=== PATIENT | female | born 1995 | race Caucasian/White ===

== ENCOUNTER → 2017-02-22 | Outpatient (REF) | payer OTHER ==
[~2017-02-22] MED LIST: AUGM500T34 PO; ORTHTAB5 PO; VICO5TAB PO
== END ==
LOC: M LAB REF 14:51
PROVIDERS: ATTEND Surgery
DX: D17.1 Benign lipomatous neoplasm of skin and subcutaneous tissue of trunk (principal)

== ENCOUNTER → 2018-06-06 | Outpatient (REF) | payer OTHER | LOC: M LAB REF 11:51 | PROVIDERS: ATTEND Surgery | DX: D17.1 Benign lipomatous neoplasm of skin and subcutaneous tissue of trunk (principal) ==

== ENCOUNTER → 2018-09-27 | Outpatient (REF) | payer OTHER ==
[2018-10-03 14:07] LABS: HPV HYBRID CAPTURE II Negative (Negative)
== END ==
LOC: M LAB REF 13:30
PROVIDERS: ATTEND Physician Assistant Medical
DX: B37.3 Candidiasis of vulva and vagina (principal); Z12.4 Encounter for screening for malignant neoplasm of cervix
CPT/HCPCS: 87624; G0123

== ENCOUNTER → 2018-12-13 | Outpatient (REF) | payer OTHER ==
[2018-12-13 17:50] LABS: HEMATOCRIT 38.2 % (36.0-47.0); HEMOGLOBIN 12.7 g/dl (12.0-15.5); MEAN CORPUSCULAR HEMOGLOBIN 31.8 pg (27.0-33.0); MEAN CORPUSCULAR HGB CONC 33.2 g/dl (32.0-36.5); MEAN CORPUSCULAR VOLUME 95.7 fl (80.0-96.0); PLATELET COUNT, AUTOMATED 332 10^3/uL (150-450); RED BLOOD COUNT 3.99 10^6/uL (4.00-5.40); WHITE BLOOD COUNT 10.1 10^3/uL (4.0-10.0)
[2018-12-13 18:44] LABS: HCG, SERUM QUANTITATIVE 64263 MIU/ML; HIV 1&2 SCREEN CENTAUR NEGATIVE (NEGATIVE); RUBELLA IgG QUALITATIVE IMMUNE (IMMUNE)
[2018-12-15 11:40] LABS: HEPATITIS C VIRUS ABY INDEX 0.1 INDEX (<0.8)
== END ==
LOC: M LAB REF 17:12
PROVIDERS: ATTEND Obstetrics & Gynecology
DX: O36.80X0 Pregnancy with inconclusive fetal viability, not applicable or unspecified (principal); Z3A.00 Weeks of gestation of pregnancy not specified

== ENCOUNTER → 2019-03-15 | Outpatient (REF) | payer OTHER | LOC: M LAB REF 16:58 | PROVIDERS: ATTEND Obstetrics & Gynecology | DX: Z36.89 Encounter for other specified antenatal screening (principal) ==

== ENCOUNTER → 2019-05-03 | Outpatient (CLI) | payer OTHER, SELFPAY ==
[2019-05-03 14:55] LABS: HEMATOCRIT 32.8 % (36.0-47.0); HEMOGLOBIN 10.5 g/dl (12.0-15.5); MEAN CORPUSCULAR HEMOGLOBIN 31.9 pg (27.0-33.0); MEAN CORPUSCULAR VOLUME 99.7 fl (80.0-96.0); PLATELET COUNT, AUTOMATED 281 10^3/uL (150-450); RED BLOOD COUNT 3.29 10^6/uL (4.00-5.40); WHITE BLOOD COUNT 13.1 10^3/uL (4.0-10.0)
== END ==
LOC: M LAB 12:34
PROVIDERS: ATTEND Obstetrics & Gynecology
DX: Z34.02 Encounter for supervision of normal first pregnancy, second trimester (principal); Z3A.00 Weeks of gestation of pregnancy not specified

== ENCOUNTER → 2019-06-28 | Outpatient (REF) | payer OTHER | LOC: M LAB REF 16:29 | PROVIDERS: ATTEND Obstetrics & Gynecology | DX: Z34.03 Encounter for supervision of normal first pregnancy, third trimester (principal) ==

== ENCOUNTER 2019-08-01 01:37 | Inpatient (IN) | payer OTHER ==
[2019-08-01] VITALS (49 sets, daily range): BP systolic 99–149; BP diastolic 47–96
[~2019-08-01] VITALS: Ht 154.9 cm; Wt 73.8 kg
[2019-08-01] MEDS ORDERED: LACTATED RINGER'S 1000 ML IV STA (03:05)
[2019-08-01] MEDS ORDERED: OXYTOCIN DRIP 30 UNITS in IV 1 EA IV SCH ×2 (03:15→12:25)
[2019-08-01 03:42] LABS: HEMATOCRIT 37.9 % (36.0-47.0); HEMOGLOBIN 12.5 g/dl (12.0-15.5); MEAN CORPUSCULAR HEMOGLOBIN 31.2 pg (27.0-33.0); MEAN CORPUSCULAR VOLUME 94.5 fl (80.0-96.0); PLATELET COUNT, AUTOMATED 314 10^3/uL (150-450); RED BLOOD COUNT 4.01 10^6/uL (4.00-5.40); WHITE BLOOD COUNT 13.5 10^3/uL (4.0-10.0)
[2019-08-01] MEDS ORDERED: FENTANYL 2MCG/ML ROPIVACAINE 0.2% IN 0.9% NACL 100ML IVBAG As Ordered ONE (04:42)
[2019-08-01] MEDS ORDERED: LACTATED RINGER'S 1000 ML IV PRN (05:15)
[2019-08-01] MEDS ORDERED: EPIDURAL COMMENT XX SCH (05:15)
[2019-08-01] MEDS ORDERED: EPIDURAL/PCA KEYS XX PRN (05:15)
[2019-08-01] MEDS ORDERED: REFRIGERATOR IV KEYS XX PRN (05:15)
[2019-08-01] MEDS ORDERED: diphenhydrAMINE 50MG/ML VIAL (J1200) IV PRN (05:15)
[2019-08-01] MEDS ORDERED: FENTANYL/ROPIVACAINE/NACL BAG 100 ML EPIDURAL SCH (05:15)
[2019-08-01] MEDS ORDERED: ONDANSETRON 4MG/2ML VIAL IV PRN (05:15)
[2019-08-01] MEDS ORDERED: NALOXONE INJ 0.4MG/1ML VIAL (J2310 PER 1MG) IV PRN (05:15)
[2019-08-01] MEDS: ePHEDrine SULFATE 25 MG/5 ML(5MG/ML) SYRINGE IV PRN ×3 (07:37→08:17)
[2019-08-01] MEDS: LR 1,000 ML IV SCH ×2 (07:46→08:46)
[2019-08-01 12:21] LABS: CORD GAS ABE A -10.6; CORD GAS HCO3 A 18.2 MEQ/L; CORD GAS O2 SAT A 72.1 %; CORD GAS PCO2 A 51.2 mmHg; CORD GAS PH A 7.168 UNITS; CORD GAS PO2 A 37.6 mmHg; CORD GAS SBC A 15.7 MEQ/L; CORD GAS TCO2 A 19.7 MEQ/L
[2019-08-01 12:22] LABS: CORD GAS ABE V -9.3; CORD GAS HCO3 V 17.7 MEQ/L; CORD GAS O2 SAT V 78.8 %; CORD GAS PCO2 V 42.2 mmHg; CORD GAS PH V 7.24 UNITS; CORD GAS PO2 V 39.4 mmHg; CORD GAS SBC V 16.8 MEQ/L
[2019-08-01] MEDS ORDERED: RHOGAM 300 MCG (1500 IU) INJ (J2790) IM SCH (12:30)
[2019-08-01] MEDS ORDERED: MEASLES,MUMPS,RUBELLA VACCINE INJ (MMR-II) (90707) SC SCH (12:30)
[2019-08-01] MEDS ORDERED: ACETAMINOPHEN 500 MG TAB PO PRN (12:30)
[2019-08-01] MEDS ORDERED: DOCUSATE SODIUM 100 MG CAP PO PRN (12:30)
[2019-08-01] MEDS ORDERED: DIBUCAINE 1% OINTMENT 30GM TOP PRN (12:30)
[2019-08-01] MEDS ORDERED: ANUSOL HC CREAM 30GM TOP PRN (12:30)
[2019-08-01] MEDS ORDERED: IBUPROFEN 800 MG TAB PO PRN (12:30)
[2019-08-01] MEDS ORDERED: METHYLERGONOVINE MALEATE 0.2 MG TAB PO PRN (12:30)
[2019-08-01] MEDS ORDERED: ACETAMINOPHEN TAB 650MG DOSE (2X325MG) PO PRN (12:30)
--- NOTE | 2019-08-02 04:26 | HPE ---
DATE OF ADMISSION: 08/01/2019 Yarelis is a 24-year-old female, 1, para 0, with an estimated date of confinement (EDC) of 07/31/2019, estimated gestational age (EGA) 40-1/7 weeks gestation, who presented to labor and delivery with complaints of contractions every 4-5 minutes. Upon evaluation in labor and delivery, she was found to be in labor. At this point, a decision was made for admission. Her record reviewed, which was essentially unremarkable. She initiated care in her first trimester. LAB: Blood type is A positive, rubella immune, hepatitis negative, HIV negative, GC/chlamydia negative. 1-hour sugar testing was within normal limits. Her group B streptococcus (GBS) is negative. PAST MEDICAL HISTORY: Significant for gastroesophageal reflux. PAST SURGICAL HISTORY: Appendecotmy, wisdom tooth extraction, lipoma removal. SOCIAL HISTORY: Patient denies any alcohol, drug, or cigarette smoking. FAMILY HISTORY: Unremarkable. REVIEW OF SYSTEMS: Unremarkable. MEDICATION: - vitamin - pantoprazole ALLERGIES: No known drug allergies. PHYSICAL EXAMINATION: Normal appearing female in no acute distress. Abdomen: Soft, nontender, nondistended. Extremities: No clubbing, cyanosis, or edema. Vaginal exam: Is 4 cm, 80% effaced. Fetus at -2 station in the vertex position. Tracing reviewed. Category 1 tracing with contractions every 3-4 minutes. ASSESSMENT: Intrauterine at 40-1/7 weeks gestation, in active labor. PLAN: Admit to labor and delivery. Routine labs sent. Pain management discussed. Patient opts for an epidural. We will continue to monitor. Anticipate delivery.
[2019-08-02] MEDS: IBUPROFEN 600 MG TAB PO PRN (05:22)
[2019-08-02 06:00] VITALS: BP 110/56
[2019-08-02] MEDS: PRENATAL VITAMINS CHEWABLE TABLET PO SCH (08:12)
[2019-08-02] MEDS ORDERED: INFLUENZA QUADRIVALENT PF VACCINE 0.5ML SYRINGE (90686) IM ONE (09:00)
[2019-08-02] MEDS ORDERED: BOOSTRIX/ADACEL VACCINE (DIPHTH/PERTUSS/ACELL/TETANUS) 0.5ML SYR IM ONE (09:00)
[2019-08-02 18:00] VITALS: BP 139/81
[2019-08-03 05:59] VITALS: BP 130/62
[2019-08-03] MEDS: PRENATAL VITAMINS CHEWABLE TABLET PO SCH (09:33)
[2019-08-03] MEDS ORDERED: INFLUENZA QUADRIVALENT PF VACCINE 0.5ML SYRINGE (90686) IM ONE (09:45)
[2019-08-03] MEDS: IBUPROFEN 600 MG TAB PO PRN (12:58)
--- NOTE | 2019-08-04 17:41 | DN ---
DATE: 08/01/2019 Yarelis is a 24-year-old female, 1, para 0 who was admitted at 40-1/7 weeks gestation in active labor. She underwent artificial rupture of membranes, clear fluid. She became fully dilated after Pitocin augmentation, delivered a live male infant in occiput posterior position with terminal meconium over an intact perineum. scores 8 and 9, weight 8 pounds, 5 ounces. Placenta delivered spontaneously intact. Three-vessel cord. Small periurethral abrasion noted. No active bleeding. No suture was needed. Estimated blood loss 300 mL. Both mother and baby in stable condition.
== END 2019-08-03 13:00 | disposition home or self-care (01) | DRG 560 ==
LOC: M LDO 01:37 → M LDI 02:38 → M OBS 17:07
PROVIDERS: ADMIT Obstetrics & Gynecology; ATTEND Obstetrics & Gynecology
PROC: 10E0XZZ Delivery of Products of Conception, External Approach (ICD-10-PCS; principal; 2019-08-01)
PROC: 10907ZC Drainage of Amniotic Fluid, Therapeutic from Products of Conception, Via Natural or Artificial Opening (ICD-10-PCS; 2019-08-01)
DX: O48.0 Post-term pregnancy (principal); O77.0 Labor and delivery complicated by meconium in amniotic fluid; Z3A.40 40 weeks gestation of pregnancy; Z37.0 Single live birth

== ENCOUNTER → 2021-09-15 | Outpatient (REF) | payer OTHER, MEDICAID ==
[2021-09-15 17:23] LABS: HEMOGLOBIN 13.5 g/dl (12.0-15.5); MEAN CORPUSCULAR HEMOGLOBIN 30.8 pg (27.0-33.0); MEAN CORPUSCULAR HGB CONC 32.9 g/dl (32.0-36.5); MEAN CORPUSCULAR VOLUME 93.4 fl (80.0-96.0); PLATELET COUNT, AUTOMATED 335 10^3/uL (150-450); RED BLOOD COUNT 4.39 10^6/uL (4.00-5.40); WHITE BLOOD COUNT 9.6 10^3/uL (4.0-10.0)
[2021-09-15 17:55] LABS: HCG, SERUM QUANTITATIVE 17162 MIU/ML
[2021-09-15 18:10] LABS: HEPATITIS B SURFACE ANTIGEN NEGATIVE (NEGATIVE)
[2021-09-15 18:37] LABS: HEPATITIS C VIRUS ABY INDEX 0.1 INDEX (<0.8)
[2021-09-15 18:38] LABS: HIV 1&2 SCREEN CENTAUR NEGATIVE (NEGATIVE)
== END ==
LOC: M LAB REF 16:50
PROVIDERS: ATTEND Obstetrics & Gynecology
DX: Z32.01 Encounter for pregnancy test, result positive (principal); O36.80X0 Pregnancy with inconclusive fetal viability, not applicable or unspecified

== ENCOUNTER → 2021-11-04 | Outpatient (REF) | payer OTHER, MEDICAID | LOC: M LAB REF 16:06 | PROVIDERS: ATTEND Obstetrics & Gynecology | DX: O02.1 Missed abortion (principal) ==

== ENCOUNTER → 2021-11-13 | Outpatient (REF) | payer OTHER, MEDICAID | LOC: M LAB REF 15:00 | PROVIDERS: ATTEND Obstetrics & Gynecology | DX: O02.1 Missed abortion (principal) ==

== ENCOUNTER → 2021-11-20 | Outpatient (REF) | payer OTHER, MEDICAID | LOC: M LAB REF 15:22 | PROVIDERS: ATTEND Obstetrics & Gynecology | DX: O02.1 Missed abortion (principal) ==

== ENCOUNTER → 2021-11-26 | Outpatient (REF) | payer OTHER, MEDICAID | LOC: M LAB REF 12:22 | PROVIDERS: ATTEND Obstetrics & Gynecology | DX: O02.1 Missed abortion (principal) ==

== ENCOUNTER → 2021-12-05 | Outpatient (CLI) | payer OTHER, MEDICAID | LOC: M LAB 11:36 | PROVIDERS: ATTEND Obstetrics & Gynecology | DX: O02.1 Missed abortion (principal); Z3A.00 Weeks of gestation of pregnancy not specified ==

== ENCOUNTER → 2021-12-11 | Outpatient (REF) | payer OTHER, MEDICAID | LOC: M LAB REF 16:22 | PROVIDERS: ATTEND Obstetrics & Gynecology | DX: Z32.02 Encounter for pregnancy test, result negative (principal); O02.1 Missed abortion ==

== ENCOUNTER → 2021-12-15 | Outpatient (REF) | payer OTHER, MEDICAID ==
[2021-12-15 13:29] LABS: BASO % 0.5 % (0.0-1.0); EOS # 0.2 10^3/uL (0.0-0.5); EOS % 2.4 % (0.0-3.0); HEMATOCRIT 24.4 % (36.0-47.0); HEMOGLOBIN 7.7 g/dl (12.0-15.5); LYMPH # 1.7 10^3/uL (1.5-5.0); LYMPH % 20.7 % (24.0-44.0); MEAN CORPUSCULAR HGB CONC 31.6 g/dl (32.0-36.5); MEAN CORPUSCULAR VOLUME 94.9 fl (80.0-96.0); MONO # 0.4 10^3/uL (0.0-0.8); MONO % 4.8 % (2.0-8.0); NEUTROPHILS # 5.9 10^3/uL (1.5-8.5); NEUTROPHILS % 70.2 % (36.0-66.0); PLATELET COUNT, AUTOMATED 432 10^3/uL (150-450); RED BLOOD COUNT 2.57 10^6/uL (4.00-5.40); WHITE BLOOD COUNT 8.4 10^3/uL (4.0-10.0)
[2021-12-15 14:11] LABS: PERCENT SATURATION 91.2 % (13.2-45.0)
== END ==
LOC: M LAB REF 12:08
PROVIDERS: ATTEND Advanced Practice Midwife
DX: O02.1 Missed abortion (principal)

== ENCOUNTER → 2021-12-24 | Outpatient (REF) | payer OTHER, MEDICAID | LOC: M LAB REF 12:23 | PROVIDERS: ATTEND Obstetrics & Gynecology | DX: O02.1 Missed abortion (principal) ==

== ENCOUNTER → 2022-06-11 | Outpatient (CLI) | payer OTHER ==
[2022-06-11 17:39] LABS: HEMATOCRIT 42.1 % (36.0-47.0); HEMOGLOBIN 13.1 g/dl (12.0-15.5); MEAN CORPUSCULAR HEMOGLOBIN 29.7 pg (27.0-33.0); MEAN CORPUSCULAR HGB CONC 31.1 g/dl (32.0-36.5); MEAN CORPUSCULAR VOLUME 95.5 fl (80.0-96.0); PLATELET COUNT, AUTOMATED 356 10^3/uL (150-450); RED BLOOD COUNT 4.41 10^6/uL (4.00-5.40); WHITE BLOOD COUNT 9.5 10^3/uL (4.0-10.0)
[2022-06-11 18:19] LABS: ALBUMIN 3.9 G/DL (3.2-5.2); ALKALINE PHOSPHATASE 33 U/L (46-116); ALT/SGPT 15 U/L (7.0-40); AST/SGOT 14 U/L (<34); BILIRUBIN,TOTAL 0.4 MG/DL (0.3-1.2); BLOOD UREA NITROGEN 11 MG/DL (9-23); CALCIUM LEVEL 9.1 MG/DL (8.5-10.1); CARBON DIOXIDE LEVEL 28 MMOL/L (20-31); CHLORIDE LEVEL 105 MMOL/L (98-107); CREATININE FOR GFR 0.66 MG/DL (0.55-1.30); GLOMERULAR FILTRATION RATE > 60.0 (>60); GLUCOSE, FASTING 84 MG/DL (60-100); POTASSIUM SERUM 4.3 MMOL/L (3.5-5.1); SODIUM LEVEL 140 MMOL/L (136-145); TOTAL PROTEIN 6.5 G/DL (5.7-8.2)
[2022-06-11 18:35] LABS: HCG, SERUM QUANTITATIVE 3355.1 MIU/ML (<4.2)
== END ==
LOC: M PLALAB 15:02
PROVIDERS: ATTEND Obstetrics & Gynecology
DX: O36.80X0 Pregnancy with inconclusive fetal viability, not applicable or unspecified (principal)

== ENCOUNTER → 2022-06-14 | Outpatient (CLI) | payer OTHER | LOC: M PLALAB 13:21 | PROVIDERS: ATTEND Obstetrics & Gynecology | DX: O36.80X0 Pregnancy with inconclusive fetal viability, not applicable or unspecified (principal) ==

== ENCOUNTER → 2022-07-19 | Outpatient (CLI) | payer OTHER ==
[2022-07-19 14:24] LABS: HEMATOCRIT 42.3 % (36.0-47.0); HEMOGLOBIN 13.6 g/dl (12.0-15.5); MEAN CORPUSCULAR HEMOGLOBIN 30.8 pg (27.0-33.0); MEAN CORPUSCULAR HGB CONC 32.2 g/dl (32.0-36.5); MEAN CORPUSCULAR VOLUME 95.7 fl (80.0-96.0); PLATELET COUNT, AUTOMATED 341 10^3/uL (150-450); RED BLOOD COUNT 4.42 10^6/uL (4.00-5.40); WHITE BLOOD COUNT 11.1 10^3/uL (4.0-10.0)
[2022-07-19 15:15] LABS: HEPATITIS B SURFACE ANTIGEN NEGATIVE (NEGATIVE)
[2022-07-19 15:28] LABS: HIV 1&2 SCREEN CENTAUR NEGATIVE (NEGATIVE)
[2022-07-19 16:01] LABS: GC DNA AMPLIFICATION NEGATIVE (NEGATIVE)
== END ==
LOC: M PLALAB 11:16
PROVIDERS: ATTEND Obstetrics & Gynecology
DX: Z34.91 Encounter for supervision of normal pregnancy, unspecified, first trimester (principal); Z3A.08 8 weeks gestation of pregnancy

== ENCOUNTER → 2022-09-23 | Outpatient (CLI) | payer OTHER | LOC: M WHC 06:50 | PROVIDERS: ATTEND Advanced Practice Midwife | DX: Z34.92 Encounter for supervision of normal pregnancy, unspecified, second trimester (principal); Z3A.19 19 weeks gestation of pregnancy ==

== ENCOUNTER → 2022-11-11 | Outpatient (CLI) | payer OTHER ==
[2022-11-11 15:22] LABS: HEMATOCRIT 36.6 % (36.0-47.0); HEMOGLOBIN 11.7 g/dl (12.0-15.5); MEAN CORPUSCULAR HEMOGLOBIN 31.3 pg (27.0-33.0); MEAN CORPUSCULAR VOLUME 97.9 fl (80.0-96.0); PLATELET COUNT, AUTOMATED 304 10^3/uL (150-450); RED BLOOD COUNT 3.74 10^6/uL (4.00-5.40); WHITE BLOOD COUNT 11.8 10^3/uL (4.0-10.0)
== END ==
LOC: M PLALAB 10:06
PROVIDERS: ATTEND Obstetrics & Gynecology
DX: Z34.82 Encounter for supervision of other normal pregnancy, second trimester (principal)

== ENCOUNTER → 2023-01-13 | Outpatient (REF) | payer OTHER | LOC: M SFHCWAGY 17:12 | PROVIDERS: ATTEND Obstetrics & Gynecology | DX: Z36.85 Encounter for antenatal screening for Streptococcus B (principal) ==

== ENCOUNTER → 2025-02-13 | Outpatient (CLI) | payer OTHER ==
[~2025-02-13] MED LIST changes: +PRENTAB9 PO; +TUMS500C PO
== END ==
LOC: M PLALAB 10:23
PROVIDERS: ATTEND Advanced Practice Midwife
DX: O36.80X0 Pregnancy with inconclusive fetal viability, not applicable or unspecified (principal); Z3A.00 Weeks of gestation of pregnancy not specified

== ENCOUNTER → 2025-03-12 | Outpatient (REF) | payer OTHER | LOC: M PLALAB 11:50 | PROVIDERS: ATTEND Nurse Practitioner Family | DX: Z53.9 Procedure and treatment not carried out, unspecified reason (principal) ==